=== PATIENT | female | born 1995 ===

== ENCOUNTER 2023-09-25 18:00 | Emergency (ER) | payer SELFPAY ==
[~2023-09-25] VITALS: Ht 172.7 cm; Wt 116.0 kg
[2023-09-25 18:03] VITALS: BP 160/90; TEMP 98; O2SAT 98
== END 2023-09-25 23:30 | disposition left against medical advice (07) ==
LOC: M ED 18:00
DX: Z53.21 Procedure and treatment not carried out due to patient leaving prior to being seen by health care provider (principal)